=== PATIENT | male | born 1975 | race Caucasian/White ===

== ENCOUNTER 2025-06-01 10:48 | Emergency (ER) | payer OTHER, SELFPAY ==
[2025-06-01 10:48] VITALS: BMI 29.5
[2025-06-01 10:50] VITALS: BP 109/76
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
[2025-06-01] MEDS: NSS 500 IV (11:44)
[2025-06-01] MEDS: TORADOL 30 MG IV (11:44)
[2025-06-01] MEDS: BENADRYL 50 MG IV (11:44)
[2025-06-01 11:55] VITALS: BP 112/78
== END 2025-06-01 12:16 | disposition home or self-care (01) ==
LOC: EMR 10:48
PROVIDERS: EMERGENCY PHYSICIAN Emergency Medicine; FAMILY PHYSICIAN Internal Medicine
DX: L53.9 Erythematous condition, unspecified (principal); W57.XXXA Bitten or stung by nonvenomous insect and other nonvenomous arthropods, initial encounter; Z91.030 Bee allergy status
CPT/HCPCS: 99283; 96374; 96375